=== PATIENT | female | born 1990 | race Caucasian/White ===

== ENCOUNTER 2021-04-26 23:40 | Inpatient (IN) | payer OTHER ==
[~2021-04-26] VITALS: Ht 162.6 cm; Wt 99.3 kg
[2021-04-27] MEDS ORDERED: PRENATAL VITAM1 EACH PO (00:39)
[2021-04-27] MEDS ORDERED: VITAMIN D250 MCG PO (00:40)
--- NOTE | 2021-04-27 11:48 | PR ---
[facility] [address] [facility] [place], [place] [address] Signed Progress Notes IP Datetime Report Generated by CPN: 04/27/2021 11:48 PROGRESS NOTES: [id number] Other Impressions: Slow progression Procedures: Artificial ROM Plan: Continue Present Management; Anticipate Vaginal Delivery VITAL SIGNS: [id number] Vital Signs: Reviewed; Within Normal Limits EXAM: [id number] Dilatation: 3.0 Effacement: 50 Station: -3 Contractions: irregular MEMBRANES: [id number] Membranes Status: Ruptured Comments: Tolerating contracitons well, but would like Epidural later. FETUS A: [id number] FHR Baseline: 130 Variability: Moderate 6-25bpm Accelerations: 15X15 FETUS B: [id number] Signing Physician: Jabier Sidhu MD Copies: ~ *Electronically Signed* 04/27/21 1148 JABIER SIDHU MD PATIENT NAME: LEIF BROWNE PROGRESS NOTE DATE OF : 89 PHYSICIAN: JABIER SIDHU MD RPT #: [id number] REPORT IS CONFIDENTIAL AND NOT TO BE RELEASED WITHOUT AUTHORIZATION
--- NOTE | 2021-04-27 13:03 | PR ---
[facility] [address] [facility] [place], [place] [address] Signed Progress Notes IP Datetime Report Generated by CPN: 04/27/2021 13:03 PROGRESS NOTES: [id number] Other Impressions: Slow progress Procedures: Scalp Electrode Plan: Continue Present Management; Anticipate Vaginal Delivery VITAL SIGNS: [id number] Vital Signs: Reviewed; Within Normal Limits EXAM: [id number] Dilatation: 3.0 Effacement: 50 Station: -3 Contractions: irregular MEMBRANES: [id number] Membranes Status: Ruptured Comments: Contracitons now starting to get closer, stronger; will continue monitoring, but may need Pitocin if cervix does not start changing soon. FETUS A: [id number] FHR Baseline: 130 Variability: Moderate 6-25bpm Accelerations: 15X15 FETUS B: [id number] Signing Physician: Jabier Sidhu MD Copies: ~ *Electronically Signed* 04/27/21 1303 JABIER SIDHU MD PATIENT NAME: LEIF BROWNE PROGRESS NOTE DATE OF : 89 PHYSICIAN: JABIER SIDHU MD RPT #: [id number] REPORT IS CONFIDENTIAL AND NOT TO BE RELEASED WITHOUT AUTHORIZATION
--- NOTE | 2021-04-27 18:20 | PR ---
[facility] [address] [facility] [place], [place] [address] Signed Progress Notes IP Datetime Report Generated by CPN: 04/27/2021 18:20 PROGRESS NOTES: [id number] Other Impressions: Slow progress Procedures: Intrauterine Pressure Catheter; Scalp Electrode Plan: Augmentation; Anticipate Vaginal Delivery VITAL SIGNS: [id number] Vital Signs: Reviewed; Within Normal Limits EXAM: [id number] Dilatation: 4.0 Effacement: 75 Station: -2 Contractions: irregular MEMBRANES: [id number] Membranes Status: Ruptured Comments: Patient comfortable with Epidural. Will continue to increae Pitocin to get good contraction pattern. FETUS A: [id number] FHR Baseline: 130 Variability: Moderate 6-25bpm Accelerations: 15X15 FETUS B: [id number] Signing Physician: Jabier Sidhu MD Copies: ~ *Electronically Signed* 04/27/211819 JABIER SIDHU MD PATIENT NAME: LEIF BROWNE PROGRESS NOTE DATE OF : 89 PHYSICIAN: JABIER SIDHU MD RPT #: [id number] REPORT IS CONFIDENTIAL AND NOT TO BE RELEASED WITHOUT AUTHORIZATION
--- NOTE | 2021-04-28 07:49 | PR ---
[facility] [address] [facility] [place] [address] Signed PP Progress Notes Datetime Report Generated by CPN: 04/28/2021 07:49 SUBJECTIVE: [id number] Pain: Within Normal Limits Nausea/Vomiting: Denies Vital Signs: [id number] Vital Signs: Reviewed; Within Normal Limits Abdomen/Uterus: Normal Lochia: Normal Extremities: Normal Exam Comments: PP Hgb/Hct = 11.1/33.0 IMPRESSION/PLAN/PROCEDURES: [id number] Impression: Normal Progression Plan: Continue Present Management Procedures: None Progress Notes: Doing well, without complaint. Signing Physician: Jabier Sidhu MD Copies: ~ *Electronically Signed* 04/28/21 0749 JABIER SIDHU MD PATIENT NAME: LEIF BROWNE PROGRESS NOTE DATE OF : 89 PHYSICIAN: JABIER SIDHU MD RPT #: [id number] REPORT IS CONFIDENTIAL AND NOT TO BE RELEASED WITHOUT AUTHORIZATION
== END 2021-04-28 20:37 | disposition home or self-care (01) | DRG 807 ==
LOC: FBC 04-27 00:04
PROVIDERS: ADMIT General Practice; ATTEND General Practice
PROC: 10E0XZZ Delivery of Products of Conception, External Approach (ICD-10-PCS; principal; 2021-04-27)
PROC: 10907ZC Drainage of Amniotic Fluid, Therapeutic from Products of Conception, Via Natural or Artificial Opening (ICD-10-PCS; 2021-04-27)
PROC: 10H07YZ Insertion of Other Device into Products of Conception, Via Natural or Artificial Opening (ICD-10-PCS; 2021-04-27)
PROC: 00HU33Z Insertion of Infusion Device into Spinal Canal, Percutaneous Approach (ICD-10-PCS; 2021-04-27)
PROC: 3E0R3BZ Introduction of Anesthetic Agent into Spinal Canal, Percutaneous Approach (ICD-10-PCS; 2021-04-27)
PROC: 0HQ9XZZ Repair Perineum Skin, External Approach (ICD-10-PCS; 2021-04-27)
PROC: 3E0P7VZ Introduction of Hormone into Female Reproductive, Via Natural or Artificial Opening (ICD-10-PCS; 2021-04-27)
DX: O43.123 Velamentous insertion of umbilical cord, third trimester (principal); Z37.0 Single live birth; O70.0 First degree perineal laceration during delivery; Z67.40 Type O blood, Rh positive; Z79.899 Other long term (current) drug therapy; Z3A.39 39 weeks gestation of pregnancy; O99.03 Anemia complicating the puerperium; D50.0 Iron deficiency anemia secondary to blood loss (chronic)
CPT/HCPCS: 01960; 85027; J2590; U0003